=== PATIENT | male | born 1985 | race Caucasian/White ===

== ENCOUNTER 2017-10-21 13:12 | Inpatient (IN) | payer MEDICAID ==
[~2017-10-21] VITALS: Ht 170.2 cm; Wt 76.2 kg
[2017-10-21 14:59] LABS: BASOPHILS % (AUTO) 0.9 % (0.0-2.0); EOSINOPHILS % (AUTO) 3.5 % (1.0-6.0); HEMATOCRIT 41.7 % (41-53); HEMOGLOBIN 14.3 g/dL (13.5-17.5); LYMPHOCYTES # (AUTO) 1.8 K/uL (1.0-4.8); LYMPHOCYTES % (AUTO) 33.5 % (22.0-44.0); MEAN CORPUSCULAR HEMOGLOBIN 32.2 pg (26.0-34.0); MEAN CORPUSCULAR HGB CONC 34.2 G/dL (31.0-37.0); MEAN CORPUSCULAR VOLUME 94 fL (80-100); MONOCYTES # (AUTO) 0.4 K/uL (0.1-1.0); MONOCYTES % (AUTO) 8.2 % (2.0-9.0); NEUTROPHILS # (AUTO) 2.9 K/uL (1.8-7.7); NEUTROPHILS % (AUTO) 53.9 % (40.0-70.0); PLATELET COUNT (AUTO) 168 K/uL (150-450); RED BLOOD CELL COUNT(AUTO) 4.42 MIL/uL (4.50-5.90); RED CELL DISTRIBUTION WIDTH 14.6 % (11.5-14.5)
[2017-10-21 15:01] LABS: AMPHET/METH SCREEN,URINE POSITIVE (NEGATIVE); BARBITURATE SCREEN, URINE NEGATIVE (NEGATIVE); BENZODIAZEPINES SCREEN,URINE NEGATIVE (NEGATIVE); CANNABINOID SCREEN,URINE POSITIVE (NEGATIVE); COCAINE SCREEN,URINE NEGATIVE (NEGATIVE); METHADONE SCREEN, URINE NEGATIVE (NEGATIVE); OPIATE SCREEN,URINE NEGATIVE (NEGATIVE)
[2017-10-21 15:29] LABS: PHENCYCLIDINE SCREEN,URINE NEGATIVE (NEGATIVE)
[2017-10-21 15:29] LABS: ANION GAP 7 mmol/L (8-16); CALCIUM, TOTAL 9.3 mg/dL (8.8-10.5); CARBON DIOXIDE 31 mmol/L (22-29); CHLORIDE 102 mmol/L (98-107); CREATININE 0.58 mg/dL (0.60-1.30); GLOMERULAR FILTR. RATE CALC > 60 mL/min (>60); GLUCOSE,RANDOM 92 mg/dL (70-110); POTASSIUM 4.5 mmol/L (3.5-5.1); SODIUM SERUM 140 mmol/L (136-145); UREA NITROGEN, BLOOD 14 mg/dL (7-18)
[2017-10-21 15:33] LABS: ALANINE AMINOTRANSFERASE 312 U/L (12-78); ALBUMIN 3.4 g/dL (3.4-5.0); ALKALINE PHOSPHATASE 101 U/L (46-116); ASPARTATE AMINOTRANSFERASE 211 U/L (15-37); BILIRUBIN,TOTAL 1.2 mg/dL (0.1-1.0); TOTAL PROTEIN, SERUM 7.1 g/dL (6.4-8.2)
[2017-10-21] MEDS ORDERED: HALOPERIDOL 5 MG TABLET PO PRN (16:15)
[2017-10-21 18:48] VITALS: BP 118/78
[2017-10-22] MEDS ORDERED: INFLUENZA VIRUS VACCINE QVS 2017-18 (3YR+)/PF 60 MCG/0.5 ML SYRINGE IM ONE (01:45)
[2017-10-22 06:35] VITALS: BP 107/60
[2017-10-22 08:44] VITALS: BP 118/76
[2017-10-22] MEDS: NICOTINE 21 MG/24 HOUR PATCH TD SCH (09:15)
[2017-10-22] MEDS ORDERED: MAGNESIUM HYDROXIDE SUSPENSION 30 ML UDCUP PO PRN (10:15)
[2017-10-22] MEDS ORDERED: LOPERAMIDE HCL 2 MG CAPSULE PO PRN (10:15)
[2017-10-22] MEDS ORDERED: ALBUTEROL SULFATE HFA 90 MCG/PUFF 8 GM INHALER IH PRN (10:15)
[2017-10-22] MEDS ORDERED: MAG HYDROX/AL HYDROX/SIMETH ES 30 ML SUSPENSION UDCUP PO PRN (10:15)
[2017-10-22] MEDS ORDERED: BENZOCAINE/MENTHOL LOZENGE MM PRN (10:15)
[2017-10-22] MEDS ORDERED: ONDANSETRON HCL 4 MG TABLET PO PRN (10:15)
[2017-10-22] MEDS ORDERED: BACITRACIN 28.4 GM OINTMENT TP PRN (10:15)
[2017-10-22] MEDS ORDERED: PETROLATUM,WHITE 71 GM JELLY TP PRN (10:15)
[2017-10-22] MEDS ORDERED: CloNIDine HCL 0.1 MG TABLET PO PRN (10:15)
[2017-10-22 16:56] VITALS: BP 110/71
[2017-10-22] MEDS: OLANZapine 5 MG TABLET PO SCH (20:31)
[2017-10-23 06:43] VITALS: BP 120/86
[2017-10-23 08:33] VITALS: BP 114/60
[2017-10-23] MEDS: NICOTINE 21 MG/24 HOUR PATCH TD SCH (09:02)
[2017-10-23] MEDS: SERTRALINE HCL 50 MG TABLET PO SCH (09:02)
[2017-10-23 16:13] VITALS: BP 120/62
[2017-10-23] MEDS: OLANZapine 5 MG TABLET PO SCH (20:21)
[2017-10-23] MEDS: MAGNESIUM SULFATE 454 GM BOX TP SCH (21:00)
[2017-10-24 07:20] VITALS: BP 121/74
[2017-10-24] MEDS: SERTRALINE HCL 50 MG TABLET PO SCH (08:55)
[2017-10-24] MEDS: NICOTINE 21 MG/24 HOUR PATCH TD SCH (08:56)
[2017-10-24 09:07] VITALS: BP 112/55
[2017-10-24] MEDS: LORazepam 2 MG TABLET PO PRN (16:28)
[2017-10-24 16:34] VITALS: BP 118/78
[2017-10-24] MEDS: OLANZapine 5 MG TABLET PO SCH (20:11)
[2017-10-24] MEDS: MAGNESIUM SULFATE 454 GM BOX TP SCH (20:57)
[2017-10-25 06:52] VITALS: BP 120/86
[2017-10-25 08:20] VITALS: BP 116/62
[2017-10-25] MEDS: SERTRALINE HCL 50 MG TABLET PO SCH (08:44)
[2017-10-25] MEDS: OLANZapine 5 MG TABLET PO SCH ×2 (08:45→20:47)
[2017-10-25] MEDS: NICOTINE 21 MG/24 HOUR PATCH TD SCH (08:45)
[2017-10-25] MEDS: LORazepam 2 MG TABLET PO PRN (16:04)
[2017-10-25 16:45] VITALS: BP 123/71
[2017-10-25] MEDS: MAGNESIUM SULFATE 454 GM BOX TP SCH (20:47)
[2017-10-26 06:13] VITALS: BP 115/63
[2017-10-26 08:29] VITALS: BP 110/71
[2017-10-26] MEDS: OLANZapine 5 MG TABLET PO SCH ×2 (08:39→20:25)
[2017-10-26] MEDS: SERTRALINE HCL 50 MG TABLET PO SCH (08:39)
[2017-10-26] MEDS: NICOTINE 21 MG/24 HOUR PATCH TD SCH (08:40)
[2017-10-26] MEDS: LORazepam 2 MG TABLET PO PRN (16:15)
[2017-10-26 16:49] VITALS: BP 122/74
[2017-10-27 02:30] VITALS: BP 111/62
[2017-10-27 08:15] VITALS: BP 109/67
[2017-10-27] MEDS: SERTRALINE HCL 50 MG TABLET PO SCH (08:35)
[2017-10-27] MEDS: NICOTINE 21 MG/24 HOUR PATCH TD SCH (08:36)
[2017-10-27] MEDS: OLANZapine 5 MG TABLET PO SCH (08:36)
[2017-10-27] MEDS: LORazepam 2 MG TABLET PO PRN ×2 (14:33→18:59)
[2017-10-27 18:29] VITALS: BP 128/88
[2017-10-27] MEDS: OLANZapine 7.5 MG TABLET PO SCH (21:02)
[2017-10-28] MEDS: ZOLPIDEM TARTRATE 10 MG TABLET PO PRN ×2 (00:24→20:36)
[2017-10-28 00:27] VITALS: BP 120/80
[2017-10-28 06:21] VITALS: BP 120/80
[2017-10-28 08:29] VITALS: BP 120/72
[2017-10-28] MEDS: OLANZapine 7.5 MG TABLET PO SCH ×2 (09:37→20:36)
[2017-10-28] MEDS: SERTRALINE HCL 50 MG TABLET PO SCH (09:37)
[2017-10-28] MEDS: NICOTINE 21 MG/24 HOUR PATCH TD SCH (09:37)
[2017-10-28] MEDS: LORazepam 2 MG TABLET PO PRN ×2 (09:43→18:48)
[2017-10-28 16:12] VITALS: BP 124/76
[2017-10-29 07:13] VITALS: BP 121/68
[2017-10-29 08:35] VITALS: BP 119/72
[2017-10-29] MEDS: OLANZapine 7.5 MG TABLET PO SCH (09:03)
[2017-10-29] MEDS: SERTRALINE HCL 50 MG TABLET PO SCH (09:03)
[2017-10-29] MEDS: NICOTINE 21 MG/24 HOUR PATCH TD SCH (09:03)
[2017-10-29] MEDS ORDERED: SERT50TA12 PO (14:54)
[2017-10-29] MEDS ORDERED: OLAN5TAB40 PO (14:54)
[2017-10-29 16:41] VITALS: BP 124/73
== END 2017-10-29 17:35 | disposition home or self-care (01) | DRG 750 ==
LOC: EMS 13:14 → B2S 17:24
PROC: 3E0234Z Introduction of Serum, Toxoid and Vaccine into Muscle, Percutaneous Approach (ICD-10-PCS; principal; 2017-10-21)
DX: F25.1 Schizoaffective disorder, depressive type (principal); R45.851 Suicidal ideations; Z59.0 Homelessness; F15.10 Other stimulant abuse, uncomplicated; B19.20 Unspecified viral hepatitis C without hepatic coma; F12.10 Cannabis abuse, uncomplicated; F17.200 Nicotine dependence, unspecified, uncomplicated; F41.9 Anxiety disorder, unspecified; G47.00 Insomnia, unspecified; Z79.899 Other long term (current) drug therapy; Z88.8 Allergy status to other drugs, medicaments and biological substances; Z71.6 Tobacco abuse counseling; Z23 Encounter for immunization
CPT/HCPCS: 80074; 82306; 84443; 90471; 96372; 99285; G0480

== ENCOUNTER 2017-11-02 13:40 | Inpatient (IN) | payer MEDICARE, MEDICAID ==
[~2017-11-02] VITALS: Ht 170.2 cm; Wt 78.9 kg
[~2017-11-02 13:40] MED LIST: OLAN5TAB40 PO; SERT50TA12 PO
[2017-11-02 15:18] LABS: BASOPHILS % (AUTO) 0.9 % (0.0-2.0); EOSINOPHILS % (AUTO) 4.3 % (1.0-6.0); HEMATOCRIT 39.5 % (41-53); HEMOGLOBIN 13.4 g/dL (13.5-17.5); LYMPHOCYTES % (AUTO) 33.6 % (22.0-44.0); MEAN CORPUSCULAR HEMOGLOBIN 32.6 pg (26.0-34.0); MEAN CORPUSCULAR HGB CONC 33.9 G/dL (31.0-37.0); MEAN CORPUSCULAR VOLUME 96 fL (80-100); MONOCYTES # (AUTO) 0.6 K/uL (0.1-1.0); MONOCYTES % (AUTO) 10.4 % (2.0-9.0); NEUTROPHILS % (AUTO) 50.8 % (40.0-70.0); PLATELET COUNT (AUTO) 182 K/uL (150-450); RED BLOOD CELL COUNT(AUTO) 4.11 MIL/uL (4.50-5.90); RED CELL DISTRIBUTION WIDTH 14.8 % (11.5-14.5)
[2017-11-02 15:20] LABS: AMPHET/METH SCREEN,URINE POSITIVE (NEGATIVE); BARBITURATE SCREEN, URINE NEGATIVE (NEGATIVE); BENZODIAZEPINES SCREEN,URINE NEGATIVE (NEGATIVE); CANNABINOID SCREEN,URINE POSITIVE (NEGATIVE); COCAINE SCREEN,URINE NEGATIVE (NEGATIVE); METHADONE SCREEN, URINE NEGATIVE (NEGATIVE); OPIATE SCREEN,URINE POSITIVE (NEGATIVE)
[2017-11-02 15:25] LABS: PHENCYCLIDINE SCREEN,URINE NEGATIVE (NEGATIVE)
[2017-11-02 15:29] LABS: ANION GAP 3 mmol/L (8-16); CALCIUM, TOTAL 8.8 mg/dL (8.8-10.5); CARBON DIOXIDE 34 mmol/L (22-29); CHLORIDE 105 mmol/L (98-107); CREATININE 0.67 mg/dL (0.60-1.30); GLOMERULAR FILTR. RATE CALC > 60 mL/min (>60); GLUCOSE,RANDOM 131 mg/dL (70-110); POTASSIUM 3.7 mmol/L (3.5-5.1); SODIUM SERUM 142 mmol/L (136-145); UREA NITROGEN, BLOOD 17 mg/dL (7-18)
[2017-11-02 15:35] LABS: ALANINE AMINOTRANSFERASE 622 U/L (12-78); ALBUMIN 3.4 g/dL (3.4-5.0); ALKALINE PHOSPHATASE 119 U/L (46-116); ASPARTATE AMINOTRANSFERASE 399 U/L (15-37); BILIRUBIN,TOTAL 0.7 mg/dL (0.1-1.0); TOTAL PROTEIN, SERUM 7.2 g/dL (6.4-8.2)
[2017-11-02 16:49] LABS: FREE T4 (FREE THYROXINE) 0.98 ng/dL (0.76-1.46); THYROID STIMULATING HORMONE 1.92 uIU/mL (0.36-3.74)
[2017-11-02] MEDS: OLANZapine 7.5 MG TABLET PO SCH (21:03)
[2017-11-03] MEDS: SERTRALINE HCL 50 MG TABLET PO SCH (08:50)
[2017-11-03] MEDS: OLANZapine 7.5 MG TABLET PO SCH ×2 (08:50→20:29)
[2017-11-03 14:17] VITALS: BP 106/69
[2017-11-03] MEDS: LORazepam 2 MG TABLET PO PRN (18:18)
[2017-11-03] MEDS: HALOPERIDOL 5 MG TABLET PO PRN (18:21)
[2017-11-04 06:25] VITALS: BP 110/68
[2017-11-04] MEDS: OLANZapine 7.5 MG TABLET PO SCH ×2 (08:49→20:29)
[2017-11-04] MEDS: SERTRALINE HCL 50 MG TABLET PO SCH (08:49)
[2017-11-04 08:52] VITALS: BP 120/69
[2017-11-04] MEDS ORDERED: MAG HYDROX/AL HYDROX/SIMETH ES 30 ML SUSPENSION UDCUP PO PRN (09:30)
[2017-11-04] MEDS ORDERED: ALBUTEROL SULFATE HFA 90 MCG/PUFF 8 GM INHALER IH PRN (09:30)
[2017-11-04] MEDS ORDERED: BENZOCAINE/MENTHOL LOZENGE MM PRN (09:30)
[2017-11-04] MEDS ORDERED: BACITRACIN 28.4 GM OINTMENT TP PRN (09:30)
[2017-11-04] MEDS ORDERED: LOPERAMIDE HCL 2 MG CAPSULE PO PRN (09:30)
[2017-11-04] MEDS ORDERED: CloNIDine HCL 0.1 MG TABLET PO PRN (09:30)
[2017-11-04] MEDS ORDERED: MAGNESIUM HYDROXIDE SUSPENSION 30 ML UDCUP PO PRN (09:30)
[2017-11-04] MEDS ORDERED: PETROLATUM,WHITE 71 GM JELLY TP PRN (09:30)
[2017-11-04] MEDS ORDERED: ONDANSETRON HCL 4 MG TABLET PO PRN (09:30)
[2017-11-04 16:18] VITALS: BP 125/80
[2017-11-04] MEDS: LORazepam 2 MG TABLET PO PRN (17:52)
[2017-11-05 07:02] VITALS: BP 126/84
[2017-11-05 08:43] VITALS: BP 112/73
[2017-11-05] MEDS: HALOPERIDOL 5 MG TABLET PO PRN (09:54)
[2017-11-05] MEDS: OLANZapine 7.5 MG TABLET PO SCH ×2 (09:54→20:09)
[2017-11-05] MEDS: LORazepam 2 MG TABLET PO PRN (09:54)
[2017-11-05] MEDS: SERTRALINE HCL 50 MG TABLET PO SCH (09:54)
[2017-11-05] MEDS: LACTULOSE 20 GM/30 ML SOLUTION UDCUP PO SCH (17:03)
[2017-11-06 03:20] VITALS: BP 110/67
[2017-11-06 08:35] VITALS: BP 103/60
[2017-11-06] MEDS: LACTULOSE 20 GM/30 ML SOLUTION UDCUP PO SCH ×3 (08:37→16:21)
[2017-11-06] MEDS: SERTRALINE HCL 50 MG TABLET PO SCH (08:38)
[2017-11-06] MEDS: OLANZapine 7.5 MG TABLET PO SCH ×2 (08:38→20:01)
[2017-11-06 16:15] VITALS: BP 122/80
[2017-11-07] MEDS: LACTULOSE 20 GM/30 ML SOLUTION UDCUP PO SCH ×2 (00:28→08:59)
[2017-11-07 05:39] VITALS: BP 106/83
[2017-11-07 07:57] VITALS: BP 114/70
[2017-11-07] MEDS: OLANZapine 7.5 MG TABLET PO SCH ×2 (08:56→20:01)
[2017-11-07] MEDS: HALOPERIDOL 5 MG TABLET PO PRN (08:56)
[2017-11-07] MEDS: SERTRALINE HCL 50 MG TABLET PO SCH (08:56)
[2017-11-07] MEDS: LORazepam 2 MG TABLET PO PRN ×2 (08:56→18:12)
[2017-11-07 09:53] VITALS: BP 114/70
[2017-11-07 16:10] VITALS: BP 113/68
[2017-11-08] MEDS: MULTIVITAMINS WITH MINERALS, THERAPEUTIC TABLET PO SCH (06:55)
[2017-11-08 07:10] VITALS: BP 109/59
[2017-11-08 08:43] VITALS: BP 118/81
[2017-11-08] MEDS: OLANZapine 7.5 MG TABLET PO SCH ×2 (09:31→20:07)
[2017-11-08] MEDS: SERTRALINE HCL 50 MG TABLET PO SCH (09:31)
[2017-11-08] MEDS: LACTULOSE 20 GM/30 ML SOLUTION UDCUP PO SCH ×2 (11:23→16:47)
[2017-11-08 16:26] VITALS: BP 113/71
[2017-11-08] MEDS: LORazepam 2 MG TABLET PO PRN (17:23)
[2017-11-08] MEDS: HALOPERIDOL 5 MG TABLET PO PRN (17:23)
[2017-11-08] MEDS: ZOLPIDEM TARTRATE 10 MG TABLET PO PRN (20:07)
[2017-11-09 01:01] VITALS: BP 106/60
[2017-11-09] MEDS: MULTIVITAMINS WITH MINERALS, THERAPEUTIC TABLET PO SCH (06:32)
[2017-11-09 08:35] VITALS: BP 114/69
[2017-11-09] MEDS: OLANZapine 7.5 MG TABLET PO SCH ×2 (09:13→20:55)
[2017-11-09] MEDS: SERTRALINE HCL 50 MG TABLET PO SCH (09:13)
[2017-11-09] MEDS: LACTULOSE 20 GM/30 ML SOLUTION UDCUP PO SCH ×2 (09:15→17:25)
[2017-11-09] MEDS: LORazepam 2 MG TABLET PO PRN ×2 (09:20→17:25)
[2017-11-09] MEDS: HALOPERIDOL 5 MG TABLET PO PRN (10:48)
[2017-11-09 16:40] VITALS: BP 125/77
[2017-11-09] MEDS: ZOLPIDEM TARTRATE 10 MG TABLET PO PRN (20:55)
[2017-11-10 01:30] VITALS: BP 121/60
[2017-11-10] MEDS: MULTIVITAMINS WITH MINERALS, THERAPEUTIC TABLET PO SCH (06:41)
[2017-11-10 08:35] VITALS: BP 115/65
[2017-11-10] MEDS: LACTULOSE 20 GM/30 ML SOLUTION UDCUP PO SCH (08:37)
[2017-11-10] MEDS: OLANZapine 7.5 MG TABLET PO SCH (08:37)
[2017-11-10] MEDS: LORazepam 2 MG TABLET PO PRN (08:37)
[2017-11-10] MEDS: SERTRALINE HCL 50 MG TABLET PO SCH (08:38)
[2017-11-10] MEDS ORDERED: OLAN7.5T9 PO (10:22)
[2017-11-10] MEDS ORDERED: SERT50TA12 PO (10:22)
[2017-11-10] MEDS ORDERED: LACT30L PO (10:54)
== END 2017-11-10 13:38 | disposition home or self-care (01) | DRG 885 ==
LOC: EMS 13:42 → B2S 11-03 10:53 → EMS 11-03 11:14 → B2S 11-03 13:54
DX: F25.1 Schizoaffective disorder, depressive type (principal); R45.851 Suicidal ideations; Z59.0 Homelessness; B19.20 Unspecified viral hepatitis C without hepatic coma; F11.10 Opioid abuse, uncomplicated; F12.10 Cannabis abuse, uncomplicated; F15.10 Other stimulant abuse, uncomplicated; F17.210 Nicotine dependence, cigarettes, uncomplicated; F41.9 Anxiety disorder, unspecified; R62.50 Unspecified lack of expected normal physiological development in childhood; D64.9 Anemia, unspecified; G47.00 Insomnia, unspecified; K59.00 Constipation, unspecified; Z79.899 Other long term (current) drug therapy; Z71.6 Tobacco abuse counseling
CPT/HCPCS: 80074; 83540; 83550; 84439; 84443; 87081; 99285; G0480